=== PATIENT | female | born 1945 | race Caucasian/White ===

== ENCOUNTER → 2017-11-15 | Outpatient (CLI) | payer MEDICARE, BC ==
[~2017-11-15] MED LIST: LOSA50 PO; OMEG1CAP30 PO
[2017-11-18 18:37] LABS: 25-OH Vitamin D, Total 48.3 ng/mL (24.0-80.0)
== END ==
LOC: LAB 15:04
PROVIDERS: Nurse Practitioner Adult Health
DX: E55.9 Vitamin D deficiency, unspecified (principal)
CPT/HCPCS: 82306

== ENCOUNTER → 2018-05-29 | Outpatient (CLI) | payer MEDICARE, BC ==
[2018-05-29 18:08] LABS: BASOPHILS ABSOLUTE AUTO 0.02 K/mm3 (0.00-0.23); BASOPHILS PERCENT AUTO 0 % (0-2); EOSINOPHILS ABSOLUTE AUTO 0.07 K/mm3 (0.00-0.68); EOSINOPHILS PERCENT AUTO 1 % (0-6); Hemoglobin 13.7 g/dL (11.5-16.0); IMMATURE GRAN ABSOLUTE AUTO 0.01 K/mm3 (0.00-0.10); IMMATURE GRAN PERCENT AUTO 0 % (0-1); LYMPHOCYTES ABSOLUTE AUTO 1.49 K/mm3 (0.84-5.20); LYMPHOCYTES PERCENT AUTO 25 % (21-46); MONOCYTES ABSOLUTE AUTO 0.44 K/mm3 (0.16-1.47); MONOCYTES PERCENT AUTO 7 % (4-13); Mean Corpuscular HGB 28.8 pg (26.0-34.0); Mean Corpuscular HGB Conc 32.6 g/dL (31.5-36.5); Mean Corpuscular Volume 88 fL (80-100); Mean Platelet Volume 11.2 fL (9.1-12.4); NEUTROPHILS ABSOLUTE AUTO 4.06 K/mm3 (1.96-9.15); NEUTROPHILS PERCENT AUTO 67 % (41-73); Platelet Count 185 K/mm3 (150-400); RDW Coefficient Variation 13.4 % (11.7-14.2); RDW Standard Deviation 43.6 fL (35.1-46.3); Red Blood Cell Count 4.76 M/mm3 (3.80-5.20); White Blood Cell Count 6.09 K/mm3 (4.00-11.30)
[2018-05-29 19:31] LABS: Alanine Aminotransfer (ALT/SGP 25 U/L (12-78); Albumin, Blood 3.5 g/dL (3.4-5.0); Albumin/Globulin Ratio 0.9 (0.8-1.8); Alk Phos 74 U/L (50-136); Anion Gap 7 mmol/L (6-16); Aspartate Aminotrans (AST/SGOT 16 U/L (12-37); Blood Urea Nitrogen 18 mg/dL (8-24); CHOL/HDL RATIO 3.5; CO2, Blood 27 mmol/L (21-32); Calcium, Blood 8.9 mg/dL (8.5-10.1); Chloride, Blood 105 mmol/L (98-108); Cholesterol 208 mg/dL (50-200); Free Thyroxine 0.95 ng/dL (0.70-1.60); Globulin, Blood 3.7 g/dL (2.2-4.0); Glucose, Blood 95 mg/dL (70-99); HDL Cholesterol 60 mg/dL (>39); LDL/HDL RATIO 2.1; Low Density Lipoprotein Chol 126 mg/dL (0-110); Potassium, Blood 4.1 mmol/L (3.5-5.5); Sodium, Blood 139 mmol/L (136-145); Total Protein, Blood 7.2 g/dL (6.4-8.2); Triglycerides 109 mg/dL (30-160); Very Low Density Lipoprot Chol 21 mg/dL (6-32)
[2018-05-29 19:41] LABS: Bun/Creatinine Ratio 20.1 (12.0-20.0); Creatinine, Blood 0.89 mg/dL (0.40-1.00); Glomerular Filtration Rate >60 (60-)
== END | disposition home or self-care (01) ==
LOC: LAB SHORT 17:51 → LAB 17:51
PROVIDERS: Nurse Practitioner Adult Health
DX: E55.9 Vitamin D deficiency, unspecified (principal); E83.51 Hypocalcemia; M17.9 Osteoarthritis of knee, unspecified; I10 Essential (primary) hypertension; R73.03 Prediabetes
CPT/HCPCS: 80053; 80061; 83036; 84439; 84443; 85025

== ENCOUNTER → 2018-12-29 | Outpatient (CLI) | payer MEDICARE, BC ==
[2018-12-29 12:30] LABS: BASOPHILS ABSOLUTE AUTO 0.01 K/mm3 (0.00-0.23); BASOPHILS PERCENT AUTO 0 % (0-2); EOSINOPHILS PERCENT AUTO 0 % (0-6); Hematocrit 41.2 % (33.0-51.0); Hemoglobin 13.6 g/dL (11.5-16.0); IMMATURE GRAN ABSOLUTE AUTO 0.02 K/mm3 (0.00-0.10); IMMATURE GRAN PERCENT AUTO 0 % (0-1); LYMPHOCYTES ABSOLUTE AUTO 0.55 K/mm3 (0.84-5.20); LYMPHOCYTES PERCENT AUTO 6 % (21-46); MONOCYTES ABSOLUTE AUTO 0.25 K/mm3 (0.16-1.47); MONOCYTES PERCENT AUTO 3 % (4-13); Mean Corpuscular HGB 28.4 pg (26.0-34.0); Mean Corpuscular Volume 86 fL (80-100); Mean Platelet Volume 11.1 fL (9.1-12.4); NEUTROPHILS ABSOLUTE AUTO 7.94 K/mm3 (1.96-9.15); NEUTROPHILS PERCENT AUTO 91 % (41-73); Platelet Count 206 K/mm3 (150-400); RDW Standard Deviation 43.6 fL (35.1-46.3); Red Blood Cell Count 4.79 M/mm3 (3.80-5.20); White Blood Cell Count 8.77 K/mm3 (4.00-11.30)
[2018-12-29 12:44] LABS: Albumin, Blood 3.8 g/dL (3.4-5.0); Albumin/Globulin Ratio 0.9 (0.8-1.8); Bilirubin, Total 1.1 mg/dL (0.1-1.0); Bun/Creatinine Ratio 17.4 (12.0-20.0); Calcium, Blood 9.4 mg/dL (8.5-10.1); Creatinine, Blood 1.32 mg/dL (0.40-1.00); Globulin, Blood 4.2 g/dL (2.2-4.0); Potassium, Blood 3.9 mmol/L (3.5-5.5)
== END | disposition home or self-care (01) ==
LOC: LAB EV 12:26 → LAB SHORT 12:26
PROVIDERS: General Practice
DX: R10.32 Left lower quadrant pain (principal)
CPT/HCPCS: 80053; 83690; 85025

== ENCOUNTER → 2019-02-14 | Outpatient (CLI) | payer MEDICARE, BC ==
[2019-02-14 18:45] LABS: BASOPHILS ABSOLUTE AUTO 0.04 K/mm3 (0.00-0.23); BASOPHILS PERCENT AUTO 1 % (0-2); EOSINOPHILS ABSOLUTE AUTO 0.14 K/mm3 (0.00-0.68); EOSINOPHILS PERCENT AUTO 3 % (0-6); Hemoglobin 13.2 g/dL (11.5-16.0); IMMATURE GRAN ABSOLUTE AUTO 0.02 K/mm3 (0.00-0.10); IMMATURE GRAN PERCENT AUTO 0 % (0-1); LYMPHOCYTES ABSOLUTE AUTO 1.44 K/mm3 (0.84-5.20); LYMPHOCYTES PERCENT AUTO 26 % (21-46); MONOCYTES ABSOLUTE AUTO 0.42 K/mm3 (0.16-1.47); MONOCYTES PERCENT AUTO 7 % (4-13); Mean Corpuscular HGB 28.4 pg (26.0-34.0); Mean Corpuscular HGB Conc 31.4 g/dL (31.5-36.5); Mean Corpuscular Volume 91 fL (80-100); Mean Platelet Volume 12.1 fL (9.1-12.4); NEUTROPHILS ABSOLUTE AUTO 3.59 K/mm3 (1.96-9.15); NEUTROPHILS PERCENT AUTO 64 % (41-73); Platelet Count 208 K/mm3 (150-400); RDW Standard Deviation 46.3 fL (35.1-46.3); Red Blood Cell Count 4.64 M/mm3 (3.80-5.20); White Blood Cell Count 5.65 K/mm3 (4.00-11.30)
[2019-02-14 19:03] LABS: Alanine Aminotransfer (ALT/SGP 33 U/L (12-78); Albumin, Blood 3.6 g/dL (3.4-5.0); Alk Phos 92 U/L (50-136); Anion Gap 4 mmol/L (6-16); Aspartate Aminotrans (AST/SGOT 17 U/L (12-37); Blood Urea Nitrogen 13 mg/dL (8-24); Bun/Creatinine Ratio 14.4 (12.0-20.0); CHOL/HDL RATIO 1.9; CO2, Blood 31 mmol/L (21-32); Calcium, Blood 9.4 mg/dL (8.5-10.1); Chloride, Blood 105 mmol/L (98-108); Cholesterol 127 mg/dL (50-200); Globulin, Blood 3.6 g/dL (2.2-4.0); Glomerular Filtration Rate >60 (60-); Glucose, Blood 138 mg/dL (70-99); HDL Cholesterol 66 mg/dL (>39); LDL/HDL RATIO 0.6; Low Density Lipoprotein Chol 38 mg/dL (0-110); Potassium, Blood 4.4 mmol/L (3.5-5.5); Sodium, Blood 140 mmol/L (136-145); Total Protein, Blood 7.2 g/dL (6.4-8.2); Triglycerides 115 mg/dL (30-160); Very Low Density Lipoprot Chol 23 mg/dL (6-32)
== END | disposition home or self-care (01) ==
LOC: LAB SHORT 18:19 → LAB 18:19
PROVIDERS: Nurse Practitioner Family
DX: I10 Essential (primary) hypertension (principal); E78.5 Hyperlipidemia, unspecified; E55.9 Vitamin D deficiency, unspecified
CPT/HCPCS: 80053; 80061; 82306; 85025

== ENCOUNTER → 2019-08-08 | Outpatient (CLI) | payer MEDICARE, BC ==
[2019-08-08 19:55] LABS: BASOPHILS ABSOLUTE AUTO 0.03 K/mm3 (0.00-0.23); BASOPHILS PERCENT AUTO 1 % (0-2); EOSINOPHILS ABSOLUTE AUTO 0.08 K/mm3 (0.00-0.68); EOSINOPHILS PERCENT AUTO 2 % (0-6); Hematocrit 41.7 % (33.0-51.0); Hemoglobin 13.5 g/dL (11.5-16.0); IMMATURE GRAN PERCENT AUTO 0 % (0-1); LYMPHOCYTES ABSOLUTE AUTO 1.32 K/mm3 (0.84-5.20); LYMPHOCYTES PERCENT AUTO 29 % (21-46); MONOCYTES ABSOLUTE AUTO 0.35 K/mm3 (0.16-1.47); MONOCYTES PERCENT AUTO 8 % (4-13); Mean Corpuscular HGB 29.1 pg (26.0-34.0); Mean Corpuscular HGB Conc 32.4 g/dL (31.5-36.5); Mean Corpuscular Volume 90 fL (80-100); Mean Platelet Volume 11.9 fL (9.1-12.4); NEUTROPHILS PERCENT AUTO 61 % (41-73); Platelet Count 196 K/mm3 (150-400); RDW Coefficient Variation 13.2 % (11.7-14.2); RDW Standard Deviation 43.3 fL (35.1-46.3); Red Blood Cell Count 4.64 M/mm3 (3.80-5.20); White Blood Cell Count 4.58 K/mm3 (4.00-11.30)
[2019-08-08 20:12] LABS: Alanine Aminotransfer (ALT/SGP 25 U/L (12-78); Albumin, Blood 3.5 g/dL (3.4-5.0); Alk Phos 75 U/L (50-136); Anion Gap 5 mmol/L (6-16); Aspartate Aminotrans (AST/SGOT 16 U/L (12-37); Bilirubin, Total 0.9 mg/dL (0.1-1.0); Blood Urea Nitrogen 12 mg/dL (8-24); Bun/Creatinine Ratio 13.8 (12.0-20.0); CHOL/HDL RATIO 3.6; CO2, Blood 27 mmol/L (21-32); Calcium, Blood 8.8 mg/dL (8.5-10.1); Chloride, Blood 107 mmol/L (98-108); Cholesterol 221 mg/dL (50-200); Creatinine, Blood 0.87 mg/dL (0.40-1.00); Globulin, Blood 3.6 g/dL (2.2-4.0); Glomerular Filtration Rate >60 (60-); Glucose, Blood 103 mg/dL (70-99); HDL Cholesterol 62 mg/dL (>39); LDL/HDL RATIO 2.1; Low Density Lipoprotein Chol 132 mg/dL (0-110); Potassium, Blood 4.1 mmol/L (3.5-5.5); Sodium, Blood 139 mmol/L (136-145); Total Protein, Blood 7.1 g/dL (6.4-8.2); Triglycerides 137 mg/dL (30-160); Very Low Density Lipoprot Chol 27 mg/dL (6-32)
== END | disposition home or self-care (01) ==
LOC: LAB SHORT 19:21 → LAB 19:21
PROVIDERS: Nurse Practitioner Family
DX: I10 Essential (primary) hypertension (principal)
CPT/HCPCS: 80053; 80061; 85025

== ENCOUNTER → 2020-05-28 | Outpatient (CLI) | payer MEDICARE ==
[2020-05-28 18:29] LABS: BASOPHILS ABSOLUTE AUTO 0.03 K/mm3 (0.00-0.23); BASOPHILS PERCENT AUTO 1 % (0-2); EOSINOPHILS ABSOLUTE AUTO 0.11 K/mm3 (0.00-0.68); EOSINOPHILS PERCENT AUTO 2 % (0-6); Hemoglobin 14.2 g/dL (11.5-16.0); IMMATURE GRAN ABSOLUTE AUTO 0.03 K/mm3 (0.00-0.10); IMMATURE GRAN PERCENT AUTO 1 % (0-1); LYMPHOCYTES ABSOLUTE AUTO 1.37 K/mm3 (0.84-5.20); LYMPHOCYTES PERCENT AUTO 26 % (21-46); MONOCYTES ABSOLUTE AUTO 0.47 K/mm3 (0.16-1.47); MONOCYTES PERCENT AUTO 9 % (4-13); Mean Corpuscular HGB 28.9 pg (26.0-34.0); Mean Corpuscular HGB Conc 32.3 g/dL (31.5-36.5); Mean Corpuscular Volume 90 fL (80-100); Mean Platelet Volume 11.6 fL (9.1-12.4); NEUTROPHILS ABSOLUTE AUTO 3.34 K/mm3 (1.96-9.15); NEUTROPHILS PERCENT AUTO 62 % (41-73); Platelet Count 218 K/mm3 (150-400); RDW Coefficient Variation 13.4 % (11.7-14.2); RDW Standard Deviation 44.1 fL (35.1-46.3); Red Blood Cell Count 4.91 M/mm3 (3.80-5.20); White Blood Cell Count 5.35 K/mm3 (4.00-11.30)
[2020-05-28 19:20] LABS: Alanine Aminotransfer (ALT/SGP 25 U/L (12-78); Albumin, Blood 3.7 g/dL (3.4-5.0); Albumin/Globulin Ratio 0.9 (0.8-1.8); Alk Phos 77 U/L (50-136); Anion Gap 5 mmol/L (6-16); Aspartate Aminotrans (AST/SGOT 15 U/L (12-37); Bilirubin, Total 0.9 mg/dL (0.1-1.0); Blood Urea Nitrogen 15 mg/dL (8-24); Bun/Creatinine Ratio 18.5 (12.0-20.0); CHOL/HDL RATIO 3.4; CO2, Blood 28 mmol/L (21-32); Calcium, Blood 9.5 mg/dL (8.5-10.1); Chloride, Blood 109 mmol/L (98-108); Cholesterol 228 mg/dL (50-200); Creatinine, Blood 0.81 mg/dL (0.40-1.00); Globulin, Blood 3.9 g/dL (2.2-4.0); Glomerular Filtration Rate >60 (60-); Glucose, Blood 101 mg/dL (70-99); HDL Cholesterol 68 mg/dL (>39); Low Density Lipoprotein Chol 137 mg/dL (0-110); Potassium, Blood 4.3 mmol/L (3.5-5.5); Sodium, Blood 142 mmol/L (136-145); Total Protein, Blood 7.6 g/dL (6.4-8.2); Triglycerides 115 mg/dL (30-160); Very Low Density Lipoprot Chol 23 mg/dL (6-32)
== END | disposition home or self-care (01) ==
LOC: LAB SHORT 17:47 → LAB 17:47
PROVIDERS: Nurse Practitioner Family
DX: I10 Essential (primary) hypertension (principal); E78.5 Hyperlipidemia, unspecified; R73.03 Prediabetes
CPT/HCPCS: 80053; 80061; 83036; 85025

== ENCOUNTER → 2020-06-12 | Outpatient (CLI) | payer MEDICARE | END | disposition home or self-care (01) | LOC: LAB 17:36 → LAB SHORT 17:36 | DX: Z11.59 Encounter for screening for other viral diseases (principal) | CPT/HCPCS: 86803 ==

== ENCOUNTER → 2020-12-04 | Outpatient (CLI) | payer MEDICARE ==
[2020-12-04 19:22] LABS: BASOPHILS ABSOLUTE AUTO 0.03 K/mm3 (0.00-0.23); BASOPHILS PERCENT AUTO 1 % (0-2); EOSINOPHILS ABSOLUTE AUTO 0.06 K/mm3 (0.00-0.68); EOSINOPHILS PERCENT AUTO 1 % (0-6); Hematocrit 41.6 % (33.0-51.0); Hemoglobin 13.6 g/dL (11.5-16.0); IMMATURE GRAN ABSOLUTE AUTO 0.01 K/mm3 (0.00-0.10); IMMATURE GRAN PERCENT AUTO 0 % (0-1); LYMPHOCYTES ABSOLUTE AUTO 1.35 K/mm3 (0.84-5.20); LYMPHOCYTES PERCENT AUTO 31 % (21-46); MONOCYTES ABSOLUTE AUTO 0.33 K/mm3 (0.16-1.47); MONOCYTES PERCENT AUTO 8 % (4-13); Mean Corpuscular HGB 28.6 pg (26.0-34.0); Mean Corpuscular HGB Conc 32.7 g/dL (31.5-36.5); Mean Corpuscular Volume 88 fL (80-100); Mean Platelet Volume 11.8 fL (9.1-12.4); NEUTROPHILS ABSOLUTE AUTO 2.57 K/mm3 (1.96-9.15); NEUTROPHILS PERCENT AUTO 59 % (41-73); Platelet Count 190 K/mm3 (150-400); RDW Coefficient Variation 13.2 % (11.7-14.2); RDW Standard Deviation 42.5 fL (35.1-46.3); Red Blood Cell Count 4.75 M/mm3 (3.80-5.20); White Blood Cell Count 4.35 K/mm3 (4.00-11.30)
[2020-12-04 19:40] LABS: Alanine Aminotransfer (ALT/SGP 25 U/L (12-78); Albumin, Blood 3.5 g/dL (3.4-5.0); Albumin/Globulin Ratio 0.9 (0.8-1.8); Alk Phos 62 U/L (50-136); Anion Gap 3 mmol/L (6-16); Aspartate Aminotrans (AST/SGOT 17 U/L (12-37); Blood Urea Nitrogen 15 mg/dL (8-24); Bun/Creatinine Ratio 16.4 (12.0-20.0); CO2, Blood 29 mmol/L (21-32); Chloride, Blood 106 mmol/L (98-108); Creatinine, Blood 0.92 mg/dL (0.40-1.00); Globulin, Blood 3.7 g/dL (2.2-4.0); Glomerular Filtration Rate >60 (60-); Glucose, Blood 105 mg/dL (70-99); HDL Cholesterol 70 mg/dL (>39); Sodium, Blood 138 mmol/L (136-145); Total Protein, Blood 7.2 g/dL (6.4-8.2)
== END ==
LOC: LAB 16:10 → LAB SHORT 16:10
PROVIDERS: Nurse Practitioner Family
DX: E78.5 Hyperlipidemia, unspecified (principal); R73.03 Prediabetes
CPT/HCPCS: 80053; 83036; 83718; 85025

== ENCOUNTER → 2021-02-05 | Outpatient (CLI) | payer MEDICARE ==
[2021-02-05 22:00] LABS: Cholesterol 222 mg/dL (50-200); HDL Cholesterol 74 mg/dL (>39); LDL/HDL RATIO 1.7; Low Density Lipoprotein Chol 124 mg/dL (0-110); Triglycerides 120 mg/dL (30-160); Very Low Density Lipoprot Chol 24 mg/dL (6-32)
== END | disposition home or self-care (01) ==
LOC: LAB SHORT 16:45 → LAB 16:45
PROVIDERS: Nurse Practitioner Family
DX: E78.5 Hyperlipidemia, unspecified (principal); R73.03 Prediabetes
CPT/HCPCS: 80061

== ENCOUNTER 2021-06-26 14:12 | Day surgery (SDC) | payer MEDICARE ==
[~2021-06-26] VITALS: Ht 167.6 cm; Wt 94.7 kg
[~2021-06-26 14:12] MED LIST changes: +Prinivil10 MG PO; +VITAMIN D325 MC3 PO
--- NOTE | 2021-06-26 15:10 | NUR ---
06/26/21 1510 Andree Ortez PT. ALSO WITH HX DIC.
== END 2021-06-26 16:30 | disposition home or self-care (01) ==
LOC: ORSCSDS 14:12
PROVIDERS: Orthopaedic Surgery
PROC: 01N50ZZ Release Median Nerve, Open Approach (ICD-10-PCS; principal; 2021-06-26 15:30)
DX: G56.01 Carpal tunnel syndrome, right upper limb (principal); I10 Essential (primary) hypertension; Z79.899 Other long term (current) drug therapy
CPT/HCPCS: J0690; J2250; J2704; J3010; J7120

== ENCOUNTER → 2022-06-24 | Outpatient (CLI) | payer MEDICARE ==
[2022-06-24 18:44] LABS: Cholesterol 220 mg/dL (50-200); HDL Cholesterol 73 mg/dL (>39); LDL/HDL RATIO 1.5; Low Density Lipoprotein Chol 113 mg/dL (0-110); Triglycerides 171 mg/dL (30-160); Very Low Density Lipoprot Chol 34 mg/dL (6-32)
== END | disposition home or self-care (01) ==
LOC: LAB SHORT 10:00 → LAB 10:00
PROVIDERS: Nurse Practitioner Family
DX: E78.5 Hyperlipidemia, unspecified (principal)
CPT/HCPCS: 80061; 84443

== ENCOUNTER → 2022-12-20 | Outpatient (CLI) | payer MEDICARE ==
[2022-12-20 20:17] LABS: Alanine Aminotransfer (ALT/SGP 36 U/L (12-78); Albumin, Blood 3.7 g/dL (3.4-5.0); Alk Phos 69 U/L (50-136); Anion Gap 1 mmol/L (6-16); Aspartate Aminotrans (AST/SGOT 24 U/L (12-37); Bilirubin, Total 1.1 mg/dL (0.1-1.0); Blood Urea Nitrogen 17 mg/dL (8-24); Bun/Creatinine Ratio 18.6 (12.0-20.0); CHOL/HDL RATIO 3.3; CO2, Blood 30 mmol/L (21-32); Calcium, Blood 9.5 mg/dL (8.5-10.1); Chloride, Blood 107 mmol/L (98-108); Cholesterol 231 mg/dL (50-200); Creatinine, Blood 0.91 mg/dL (0.40-1.00); Globulin, Blood 3.8 g/dL (2.2-4.0); Glomerular Filtration Rate 65 (60-); Glucose, Blood 109 mg/dL (70-99); HDL Cholesterol 71 mg/dL (>39); Low Density Lipoprotein Chol 139 mg/dL (0-110); Potassium, Blood 3.9 mmol/L (3.5-5.5); Sodium, Blood 138 mmol/L (136-145); Total Protein, Blood 7.5 g/dL (6.4-8.2); Triglycerides 107 mg/dL (30-160); Very Low Density Lipoprot Chol 21 mg/dL (6-32)
== END | disposition home or self-care (01) ==
LOC: LAB 17:06 → LAB SHORT 17:06
PROVIDERS: Nurse Practitioner Family
DX: E78.5 Hyperlipidemia, unspecified (principal); E55.9 Vitamin D deficiency, unspecified; I10 Essential (primary) hypertension
CPT/HCPCS: 80053; 80061; 82306; 84443

== ENCOUNTER → 2022-12-22 | Outpatient (CLI) | payer MEDICARE ==
[2022-12-22 17:46] LABS: BASOPHILS ABSOLUTE AUTO 0.04 K/mm3 (0.00-0.23); BASOPHILS PERCENT AUTO 1 % (0-2); EOSINOPHILS ABSOLUTE AUTO 0.08 K/mm3 (0.00-0.68); EOSINOPHILS PERCENT AUTO 2 % (0-6); Hematocrit 38.2 % (33.0-51.0); IMMATURE GRAN PERCENT AUTO 0 % (0-1); LYMPHOCYTES ABSOLUTE AUTO 1.26 K/mm3 (0.84-5.20); LYMPHOCYTES PERCENT AUTO 27 % (21-46); MONOCYTES ABSOLUTE AUTO 0.33 K/mm3 (0.16-1.47); MONOCYTES PERCENT AUTO 7 % (4-13); Mean Corpuscular HGB 29.5 pg (26.0-34.0); Mean Corpuscular Volume 87 fL (80-100); Mean Platelet Volume 10.5 fL (9.1-12.4); NEUTROPHILS ABSOLUTE AUTO 2.96 K/mm3 (1.96-9.15); NEUTROPHILS PERCENT AUTO 63 % (41-73); Platelet Count 213 K/mm3 (150-400); RDW Coefficient Variation 13.1 % (11.7-14.2); RDW Standard Deviation 41.5 fL (35.1-46.3); Red Blood Cell Count 4.41 M/mm3 (3.80-5.20); White Blood Cell Count 4.67 K/mm3 (4.00-11.30)
== END | disposition home or self-care (01) ==
LOC: LAB 16:09 → LAB SHORT 16:09
PROVIDERS: Nurse Practitioner Family
DX: I10 Essential (primary) hypertension (principal)
CPT/HCPCS: 85025

== ENCOUNTER → 2023-05-18 | Outpatient (CLI) | payer MEDICARE ==
[2023-05-18 19:35] LABS: Cholesterol 238 mg/dL (50-200)
== END | disposition home or self-care (01) ==
LOC: LAB SHORT 17:14 → LAB 17:14
PROVIDERS: Nurse Practitioner Family
DX: E78.5 Hyperlipidemia, unspecified (principal)
CPT/HCPCS: 82465

== ENCOUNTER 2024-02-26 09:05 | Emergency (ER) | payer MEDICARE ==
[~2024-02-26] VITALS: Ht 167.6 cm; Wt 93.4 kg
[2024-02-26 10:18] LABS: BASOPHILS ABSOLUTE AUTO 0.03 K/mm3 (0.00-0.23); BASOPHILS PERCENT AUTO 0 % (0-2); EOSINOPHILS ABSOLUTE AUTO 0.07 K/mm3 (0.00-0.68); EOSINOPHILS PERCENT AUTO 1 % (0-6); Hematocrit 38.8 % (33.0-51.0); Hemoglobin 12.9 g/dL (11.5-16.0); IMMATURE GRAN ABSOLUTE AUTO 0.03 K/mm3 (0.00-0.10); IMMATURE GRAN PERCENT AUTO 0 % (0-1); LYMPHOCYTES PERCENT AUTO 11 % (21-46); MONOCYTES ABSOLUTE AUTO 0.57 K/mm3 (0.16-1.47); MONOCYTES PERCENT AUTO 6 % (4-13); Mean Corpuscular HGB 29.3 pg (26.0-34.0); Mean Corpuscular HGB Conc 33.2 g/dL (31.5-36.5); Mean Corpuscular Volume 88 fL (80-100); Mean Platelet Volume 10.6 fL (9.1-12.4); NEUTROPHILS ABSOLUTE AUTO 7.53 K/mm3 (1.96-9.15); NEUTROPHILS PERCENT AUTO 82 % (41-73); Platelet Count 216 K/mm3 (150-400); RDW Coefficient Variation 13.4 % (11.7-14.2); RDW Standard Deviation 43.4 fL (35.1-46.3); Red Blood Cell Count 4.41 M/mm3 (3.80-5.20); White Blood Cell Count 9.23 K/mm3 (4.00-11.30)
[2024-02-26 10:36] LABS: Albumin, Blood 3.6 g/dL (3.4-5.0); Bilirubin, Total 1.2 mg/dL (0.1-1.0); Bun/Creatinine Ratio 14.7 (12.0-20.0); Calcium, Blood 9.2 mg/dL (8.5-10.1); Creatinine, Blood 0.88 mg/dL (0.40-1.00); Globulin, Blood 3.7 g/dL (2.2-4.0); Potassium, Blood 3.6 mmol/L (3.5-5.5); Total Protein, Blood 7.3 g/dL (6.4-8.2)
[2024-02-26 10:49] LABS: Source, Urine Clean Catch
[2024-02-26 10:54] LABS: Appearance, Urine Clear (Clear); Bilirubin, Urine Neg (Neg); Blood, Urine 1+ (Neg); Color, Urine Yellow (P-Yellow); Glucose Qualitative, Urine Neg (Neg); Ketones, Urine Neg (Neg); Leukocyte Esterase, Urine 3+ (Neg); Nitrite, Urine Neg (Neg); Protein, Urine Neg (Neg); Urobilinogen, Urine NORM (Normal)
[2024-02-26 11:14] LABS: Bacteria Few /hpf; Red Blood Cells, Urine 0-2 /hpf (0-2); Squamous Epithelial Cells Few /hpf (Few)
[2024-02-26] MEDS ORDERED: CEPH500 PO (12:36)
[2024-02-26] MEDS ORDERED: Robaxin750 MG PO (12:36)
[2024-02-26 13:09] VITALS: BP 126/74
== END 2024-02-26 13:08 | disposition home or self-care (01) ==
LOC: ER 09:05
PROVIDERS: Physician Assistant
DX: K57.32 Diverticulitis of large intestine without perforation or abscess without bleeding (principal); N30.01 Acute cystitis with hematuria; I10 Essential (primary) hypertension; Z79.899 Other long term (current) drug therapy
CPT/HCPCS: 74177; 80053; 81001; 85025; 87086; 99284-25; Q9967

== ENCOUNTER → 2024-03-26 | Outpatient (CLI) | payer MEDICARE ==
[~2024-03-26] MED LIST changes: +CEPH500 PO; +Robaxin750 MG PO
[2024-03-26 17:19] LABS: BASOPHILS ABSOLUTE AUTO 0.02 K/mm3 (0.00-0.23); BASOPHILS PERCENT AUTO 0 % (0-2); EOSINOPHILS ABSOLUTE AUTO 0.11 K/mm3 (0.00-0.68); EOSINOPHILS PERCENT AUTO 2 % (0-6); Hematocrit 39.8 % (33.0-51.0); Hemoglobin 13.2 g/dL (11.5-16.0); IMMATURE GRAN ABSOLUTE AUTO 0.02 K/mm3 (0.00-0.10); IMMATURE GRAN PERCENT AUTO 0 % (0-1); LYMPHOCYTES ABSOLUTE AUTO 1.14 K/mm3 (0.84-5.20); LYMPHOCYTES PERCENT AUTO 24 % (21-46); MONOCYTES ABSOLUTE AUTO 0.38 K/mm3 (0.16-1.47); MONOCYTES PERCENT AUTO 8 % (4-13); Mean Corpuscular HGB 28.9 pg (26.0-34.0); Mean Corpuscular HGB Conc 33.2 g/dL (31.5-36.5); Mean Corpuscular Volume 87 fL (80-100); Mean Platelet Volume 12.4 fL (9.1-12.4); NEUTROPHILS ABSOLUTE AUTO 3.06 K/mm3 (1.96-9.15); NEUTROPHILS PERCENT AUTO 65 % (41-73); Platelet Count 214 K/mm3 (150-400); RDW Coefficient Variation 13.6 % (11.7-14.2); RDW Standard Deviation 43.5 fL (35.1-46.3); Red Blood Cell Count 4.56 M/mm3 (3.80-5.20); White Blood Cell Count 4.73 K/mm3 (4.00-11.30)
[2024-03-26 17:41] LABS: Alanine Aminotransfer (ALT/SGP 28 U/L (12-78); Albumin, Blood 3.6 g/dL (3.4-5.0); Albumin/Globulin Ratio 0.9 (0.8-1.8); Alk Phos 88 U/L (50-136); Anion Gap 9 mmol/L (3-11); Aspartate Aminotrans (AST/SGOT 21 U/L (12-37); Bilirubin, Total 1.2 mg/dL (0.1-1.0); Blood Urea Nitrogen 11 mg/dL (8-24); Bun/Creatinine Ratio 14.3 (12.0-20.0); CHOL/HDL RATIO 3.1; CO2, Blood 30 mmol/L (21-32); Calcium, Blood 9.3 mg/dL (8.5-10.1); Chloride, Blood 103 mmol/L (98-108); Cholesterol 185 mg/dL (50-200); Creatinine, Blood 0.77 mg/dL (0.40-1.00); Globulin, Blood 3.9 g/dL (2.2-4.0); Glomerular Filtration Rate 79 (60-); Glucose, Blood 106 mg/dL (70-99); HDL Cholesterol 59 mg/dL (>39); LDL/HDL RATIO 1.7; Low Density Lipoprotein Chol 100 mg/dL (0-110); Potassium, Blood 3.6 mmol/L (3.5-5.5); Sodium, Blood 138 mmol/L (136-145); Thyroid Stimulating Hormone 0.836 uIU/mL (0.360-4.800); Total Protein, Blood 7.5 g/dL (6.4-8.2); Triglycerides 132 mg/dL (30-160); Very Low Density Lipoprot Chol 26 mg/dL (6-32)
== END ==
LOC: LAB SHORT 16:12 → LAB 16:12
PROVIDERS: Nurse Practitioner Family
DX: I10 Essential (primary) hypertension (principal); E78.5 Hyperlipidemia, unspecified; E55.9 Vitamin D deficiency, unspecified; R73.03 Prediabetes
CPT/HCPCS: 80053; 80061; 82306; 83036; 84443; 85025

== ENCOUNTER → 2025-07-24 | Outpatient (CLI) | payer MEDICARE ==
[2025-07-24 20:29] LABS: Alanine Aminotransfer (ALT/SGP 22.0 U/L (12-78); Albumin, Blood 3.9 g/dL (3.4-5.0); Albumin/Globulin Ratio 1.2 (0.8-1.8); Anion Gap 6.0 mmol/L (3-11); Aspartate Aminotrans (AST/SGOT 20.0 U/L (12-37); Bilirubin, Total 1.2 mg/dL (0.1-1.0); Blood Urea Nitrogen 11.0 mg/dL (8-24); CO2, Blood 32.0 mmol/L (21-32); Calcium, Blood 9.8 mg/dL (8.5-10.1); Chloride, Blood 104.0 mmol/L (98-108); Creatinine, Blood 0.82 mg/dL (0.40-1.00); Globulin, Blood 3.3 g/dL (2.2-4.0); Glucose, Blood 107.0 mg/dL (70-99); Potassium, Blood 3.7 mmol/L (3.5-5.5); Sodium, Blood 138.0 mmol/L (136-145); Total Protein, Blood 7.2 g/dL (6.4-8.2)
== END ==
LOC: LAB SHORT 16:30 → LAB 16:30
PROVIDERS: Family Medicine
DX: R17 Unspecified jaundice (principal)
CPT/HCPCS: 80053